=== PATIENT | female | born 1955 | race Caucasian/White ===

== ENCOUNTER 2017-05-05 14:43 | Outpatient (CLI) | payer BC ==
--- NOTE | 2017-05-05 15:57 | MRI ---
RIGHT KNEE MRI WITHOUT IV CONTRAST 05/05/17 HISTORY: 61-year-old female with right knee pain since August with concern for right meniscal tear. Multiplanar and multisequence MRI examination of the right knee is performed. No significant abnormal joint effusion. There is some blunting of the posterior root of the medial meniscus with some thicke violetta and heterogeneous signal associated with the capsulomeniscal junction region of the posterior ho rn, posterior body probably as the result of a flap tear. The lateral meniscus appears unremarkable. The anterior and posterior cruciate ligaments and collateral ligaments are unremarkable. IMPRESSION: Blunting of the posterior root of the medial meniscus with evidence for a flap tear of the medial men iscus. No evidence of other significant acute internal derangement. POS: [facility]
== END 2017-05-05 14:44 | disposition home or self-care (01) ==
LOC: SCSMRI 14:43
PROVIDERS: ATTEND Orthopaedic Surgery
DX: S83.241A Other tear of medial meniscus, current injury, right knee, initial encounter (principal)

== ENCOUNTER 2017-05-19 15:47 | Outpatient (CLI) | payer BC ==
[2017-05-19 17:02] LABS: #Basophils 0.1 thou/uL (0.0-0.2); #Eosinphils 0.1 thou/uL (0.0-0.7); #Monocytes 0.5 thou/uL (0.11-0.59); #Neutrophils 3.1 thou/uL (1.40-6.50); %Basophils 1.1 % (0.0-1.0); %Eosinophils 1.1 % (0.0-10.0); %Lymphocytes 44.3 % (21.0-51.0); %Monocytes 7.9 % (0.0-10.0); %Neutrophils 45.5 % (42.0-75.0); Hemoglobin 13.7 g/dL (12.0-16.0); Mean Corpuscular HGB CONC 32.7 g/dL (32.0-36.0); Mean Corpuscular Hemoglobin 29.5 pg (27.0-31.0); Mean Corpuscular Volume 90.3 fl (81.0-99.0); Mean Platelet Volume 6.7 fL (7.4-10.4); Platelet Count 266 thou/uL (130-400); RBC Distribution Width 11.9 % (11.5-14.5); Red Blood Cell (RBC) Count 4.66 mill/uL (4.20-5.40); White Blood Cell (WBC) Count 6.8 thou/uL (4.8-10.8)
[2017-05-19 17:44] LABS: ALT (SGPT) 20 U/L (8-55); AST (SGOT) 16 U/L (5-34); Albumin 4.3 g/dL (3.5-5.0); Alkaline Phosphatase 76 U/L (40-150); Anion Gap 13 mmol/L (10-20); BUN (Urea Nitrogen) 12 mg/dL (9.8-20.1); Bilirubin, Total 0.4 mg/dL (0.2-1.2); Calc. Creatinine Clearance 0 mL/min (70-130); Calcium 9.9 mg/dL (7.8-10.44); Carbon Dioxide 29 mmol/L (22-29); Chloride 104 mmol/L (98-107); Estimated GFR-MDRD 77; Globulin 2.8 g/dL (2.4-3.5); Glucose 98 mg/dL (70-105); Potassium 3.9 mmol/L (3.5-5.1); Protein, Total 7.1 g/dL (6.0-8.3); Sodium 142 mmol/L (136-145)
== END 2017-05-19 15:48 | disposition home or self-care (01) ==
LOC: LABBT 15:47
PROVIDERS: ATTEND Orthopaedic Surgery
DX: Z01.812 Encounter for preprocedural laboratory examination (principal); S83.241A Other tear of medial meniscus, current injury, right knee, initial encounter
CPT/HCPCS: 80053; 85025

== ENCOUNTER 2017-05-25 07:40 | Day surgery (SDC) | payer BC ==
[2017-05-19 16:19] VITALS: BMI 23.6
[2017-05-25] MEDS ORDERED: Diprivan 20 ML ONE (08:04)
[2017-05-25] MEDS ORDERED: Midazolam HCl 2 mg/2 ml Vial ONE (08:35)
[2017-05-25] MEDS ORDERED: Fentanyl 100 MCG/2 ML VIAL ONE ×2 (08:35→10:07)
[2017-05-25] MEDS ORDERED: CEFAZOLIN/Water 2 GM/20 ML SYRINGE ONE (09:06)
--- NOTE | 2017-05-25 11:11 | OP ---
PREOPERATIVE DIAGNOSIS: Right knee medial meniscus tear, chondromalacia patella. POSTOPERATIVE DIAGNOSIS: Right knee medial meniscus tear, chondromalacia patella. SURGEON: Jonnie Escamilla M.D. ANESTHESIA: TIVA local. BLOOD LOSS: Minimal. SPECIMEN: None. DRAINS: None. COMPLICATIONS: None. DESCRIPTION OF PROCEDURE: The patient was taken to the operating room where general anesthesia was i nduced. Right leg was prepped and draped in the usual sterile fashion. No tourniquet was used. Sco pe was placed in the lateral portal and probe was placed in medial portal. Suprapatellar pouch was f ree of disease. There was chondromalacia of the patella with quite a bit of fraying cartilage. I de brided this cartilage. This did show areas of grade III chondromalacia fissures down to bone. Scope was placed in the lateral compartment. Lateral compartment was completely free of disease. Lateral meniscus was stable. The ACL was intact. Medial compartment had a posterior horn tear. The steelscope operator ior horn was debrided using basket forceps and smoothed using a 4-0 full radius resector. The knee w as then drained. Sterile dressings applied. There were no complications.
== END 2017-05-25 12:55 | disposition home or self-care (01) ==
LOC: SDC 07:40
PROVIDERS: ATTEND Orthopaedic Surgery
PROC: 0SQC4ZZ Repair Right Knee Joint, Percutaneous Endoscopic Approach (ICD-10-PCS; principal; 2017-05-25)
DX: S83.241A Other tear of medial meniscus, current injury, right knee, initial encounter (principal); E78.5 Hyperlipidemia, unspecified; M19.90 Unspecified osteoarthritis, unspecified site; Z79.899 Other long term (current) drug therapy; Z98.890 Other specified postprocedural states
CPT/HCPCS: G8978-GP-CI; G8979-GP-CI; G8980-GP-CI; J2250; J2704; J3010